=== PATIENT | female | born 1985 | race Caucasian/White ===

== ENCOUNTER → 2019-06-23 | Outpatient (REF) ==
--- NOTE | 2019-06-23 10:10 | Diagnostic Imaging Report ---
INDICATION: History of latent tuberculosis. Time of exam 9:35 AM No prior studies are available for comparison. The heart size is normal. The lungs are clear. No infiltrates are seen. There are no findings to suggest tuberculosis. The pulmonary vascularity is normal. No effusion or pneumothorax is seen. IMPRESSION: No acute feature identified. Dictated by: Dictated on workstation # [id number]
== END | disposition home or self-care (01) ==
LOC: OCC 08:57
PROVIDERS: ATTEND Family Medicine
CPT/HCPCS: 71045